=== PATIENT | female | born 1960 | race Caucasian/White ===

== ENCOUNTER 2018-01-13 07:11 | Emergency (ER) | payer BC ==
[2018-01-13 07:27] VITALS: BP 104/57
[2018-01-13] MEDS ORDERED: Fluorescein Sodium TOPICAL* 1 MG TEST STRIP OPHTHALMIC ONE (07:38)
--- NOTE | 2018-01-13 07:38 | UC ---
Eye Complaint HPI - HPI Summary HPI Summary: Pt presents to with irritation in right eye since yesterday. Pt states felt like a fb Pt irrigated but not feels irriated "everywhere" Patient denies photophobia. Patient with clear drainage. Patient denies headache. No nausea vomiting. Patient does not know what the foreign body was. Patient does not Tylenol last tetanus shot was. Patient denies vision changes. Patient was glasses but not contact lenses. Patient without any ear pain jaw pain or sinus congestion. Patient's medications reviewed this visit. Not immunocompromised. no analgesia taken - History of Current Complaint Chief Complaint: UCEye Stated Complaint: R EYE COMPLAINT Time Seen by Provider: 01/13/18 07:32 ?: No Onset/Duration: Sudden Onset Timing: Constant Severity Initially: Moderate Severity Currently: Moderate Pain Intensity: 7 - Allergies/Home Medications Allergies/Adverse Reactions: Allergies Allergy/AdvReac Type Severity Reaction Status Date / Time No Known Allergies Allergy Verified 01/13/18 07:27 Home Medications: Home Medications Fluticasone/Vilanterol MDI(NF) [Breo Ellipta MDI 100/25(NF)] 1 puff INH DAILY [History Confirmed 01/13/18] Tetrahyd/Zn/Peg 400/Hyprom/Gly [Visine Totality Multi-Sym] 1 chastity OP ONCE PRN [History Confirmed 01/13/18] PMH/Surg Hx/FS Hx/Imm Hx Previously Healthy: Yes - Surgical History Surgical History: Yes Surgery Procedure, Year, and Place: Tonsillectomy. Appendectomy. [place] [facility]. Foot - Family History Known Family History: Positive: Non-Contributory - Social History Lives: With Family Alcohol Use: Rare Substance Use Type: None Smoking Status (MU): Former Smoker When Did the Patient Quit Smoking/Using Tobacco: 2009 Review of Systems All Other Systems Reviewed And Are Negative: Yes Eyes: Positive: Drainage, Eye Redness. Negative: Blurred Vision, Diplopia, Photophobia Physical Exam - Summary Physical Exam Summary: Vital Signs Reviewed: Yes A+Ox3, no distress Eyes: right conjunctive diffusely inflammed + clear drainage no photophobic crisp fundoscopic margins b/l, fluorscene: pt with punctate uptake at 6 o'clock at margin pupil/iris. No foreign body retained appreciated. lids everted - no fb ENT: Hearing grossly normal , TM x2 clear turbinates wnl mmmoist neck: supple Respiratory: Positive: No respiratory distress, No accessory muscle use Cardiovascular: skin color reflect adequate perfusion Musculoskeletal Exam: PATHAK x 4 without difficulty Neurological: Positive: Alert, ambulatory without difficulty Psychological: Positive: Normal Response To Family Skin: Positive: no rash, no ecchymosis Triage Information Reviewed: Yes Vital Signs: Initial Vital Signs Temp 97.2 F 01/13/18 07:15 Pulse 82 01/13/18 07:15 Resp 18 01/13/18 07:15 BP 104/57 01/13/18 07:15 Pulse Ox 97 01/13/18 07:15 Eye Complaint Course/Dx - Course Course Of Treatment: Patient presents with irritation to her right eye. Patient with a foreign body sensation. Patient states she irrigated it yesterday and continues to have sensation. On exam eyes injected. Visual acuity reviewed. Patient does have fluorescein uptake around 6:00. No foreign body appreciated. No foreign body under the lids. Patient tolerated well. Patient will be given Polytrim. Patient encouraged to follow-up with her hook and eye machine operator or Dr. bautista office on Tuesday. Patient encouraged to call or return with any questions or concerns. Motrin/Tylenol for pain patient declined a tetanus today states she will follow up with primary. Patient comfortable in agreement with plan. - Differential Dx/Diagnosis Provider Diagnosis: Right corneal abrasion Discharge - Sign-Out/Discharge Documenting (check all that apply): Patient Departure All imaging exams completed and their final reports reviewed: No Studies - Discharge Plan Condition: Stable Disposition: HOME Prescriptions: Polymyx/Trimethoprim OPTH* [Polytrim OPHTH*] 2 drop RIGHT EYE Q6HR #1 btl Patient Education Materials: Corneal Abrasion (ED) Referrals: Little Sparks MD [Primary Care Provider] - Ac Flores MD [Medical Doctor] - Additional Instructions: - apply eye drops to affected every 4 times a day for the next 5 days -okay to alternate ibuprofen (Advil, Motrin) 600mg and tylenol every 3 hours for pain. Take with food - wearing sunglasses will help with discomfort if you are sensitive to the light -contact an hook and eye machine operator today (your hook and eye machine operator or Dr. Flores) to schedule a follow-up early next week. Contact the hook and eye machine operator or return if you have any questions or concerns - Billing Disposition and Condition Condition: STABLE Disposition: Home
== END 2018-01-13 08:02 | disposition home or self-care (01) ==
LOC: UCEAST 07:11
DX: S05.01XA Injury of conjunctiva and corneal abrasion without foreign body, right eye, initial encounter (principal); X58.XXXA Exposure to other specified factors, initial encounter; Y92.9 Unspecified place or not applicable; Z87.891 Personal history of nicotine dependence
CPT/HCPCS: 99212; A9270-GY; G0463

== ENCOUNTER 2019-01-15 11:13 | Emergency (ER) | payer BC ==
[2019-01-15 11:29] VITALS: BP 100/59
--- NOTE | 2019-01-15 11:50 | UC ---
Laceration HPI - HPI Summary HPI Summary: 58 y/o female presents to the urgent care c/o cutting her left middle and ring finger w/ a utility knife today. Bleeding stopped w/ pressure. Pain is 2/10 at touch and she is able to move her fingers w/o any difficulty. left ring finger laceration is very discrete. Pt is unaware of her last tetanus shot. Pt denies fever, numbness or tingling sensation over the left hand, SOB, chest pain, abdominal pain, N/V/d. - History Of Current Complaint Chief Complaint: UCLaceration Stated Complaint: FINGER LAC Time Seen by Provider: 01/15/19 11:30 Hx Obtained From: Patient Laceration Location: Finger - left middle finger laceration Mechanism Of Injury: Sharp Trauma - w/ a utility knife Onset/Duration: Sudden Onset, Lasting Hours - 2 hrs ago Severity: Mild Pain Intensity: 2 - at touch Pain Scale Used: 0-10 Numeric Aggravating Factors: Other: - touch Related History: Dominant Hand Right - Allergies/Home Medications Allergies/Adverse Reactions: Allergies Allergy/AdvReac Type Severity Reaction Status Date / Time No Known Allergies Allergy Verified 01/15/19 11:29 PMH/Surg Hx/FS Hx/Imm Hx Previously Healthy: Yes Endocrine History: Hypothyroidism Respiratory History: COPD GI/ History: Gastroesophageal Reflux - Surgical History Surgical History: Yes Surgery Procedure, Year, and Place: Tonsillectomy. Appendectomy. [place] [facility]. Foot - Family History Known Family History: Positive: Respiratory Disease - COPD Family History: colon cancer lung cancer - Social History Occupation: Employed Full-time Lives: With Family Alcohol Use: Weekly Substance Use Type: None Smoking Status (MU): Former Smoker When Did the Patient Quit Smoking/Using Tobacco: 2009 - Immunization History Hx Tetanus, Diphtheria Vaccination: No - Pt priming mixture carrier't recall when was the last Tetanus vaccine Review of Systems All Other Systems Reviewed And Are Negative: Yes Constitutional: Positive: Negative Skin: Positive: Other - laceration of left middle and ring finger w/ an utitly knife Eyes: Positive: Negative ENT: Positive: Negative Respiratory: Positive: Negative Cardiovascular: Positive: Negative Gastrointestinal: Positive: Negative Genitourinary: Positive: Negative Motor: Positive: Negative Neurovascular: Positive: Negative Musculoskeletal: Positive: Other: - left middle finger Neurological: Positive: Negative Psychological: Positive: Negative Is Patient Immunocompromised?: No Physical Exam - Summary Physical Exam Summary: Vital Signs Reviewed: Yes General: well developed, well nourished female sitting in the examining table w/ o any apparent distress Eye Exam: Normal Eyes: Positive: Conjunctiva Clear - PERRLA, EOMI, fundi grossly normal ENT: Positive: Normal ENT inspection, Hearing grossly normal, Pharynx normal, TMs normal Neck: Positive: Supple, Nontender, No Lymphadenopathy Respiratory: Positive: Chest non-tender, Lungs clear, Normal breath sounds, No respiratory distress Cardiovascular: Positive: RRR, No Murmur, Pulses Normal, Brisk Capillary Refill Abdomen Description: Positive: Nontender, No Organomegaly, Soft. Negative: CVA Tenderness (R), CVA Tenderness (L) Bowel Sounds: Positive: Present Musculoskeletal: Positive: Strength Intact, ROM Intact, No Edema Neurological: Positive: Alert, Muscle Tone Normal Psychological Exam: Normal Skin: Positive:Palmar side of the dital left middle finger with a linear superficial laceration about 1.0cm in size, non bleeding, no foreign body observed. mild tenderness to palpation, NO ecchymosis around left middle finger. Left ring finger w/ a discrete linear abrasion which is closed now. FROM of Left hand, sensation intact, capillary refill brisk, and pulses WNL. Triage Information Reviewed: Yes Vital Signs: Initial Vital Signs Temp 98.2 F 01/15/19 11:26 Pulse 86 01/15/19 11:26 Resp 18 01/15/19 11:26 BP 100/59 01/15/19 11:26 Pulse Ox 93 01/15/19 11:26 Laceration Repair - Laceration Repair 1 Description: Linear - superficial linear laceration over the palmar distal left middle finger Laceration Size After Repair: Length (cm) - 1.0cm in size Modified For Repair: No Cleansing Completed Via Routine Prep: Yes Irrigation With Pressure Irrigation Device: Yes Closure Material: Skin Adhesive, SteriStrips - 3 Suture Of: Skin Laceration Course/Dx - Course/Dx Course Of Treatment: Pt w/ Palmar side of the dital left middle finger with a linear superficial laceration about 1.0cm in size, non bleeding, no foreign body observed. mild tenderness to palpation on examination. LACERATION PROCEDURE NOTE: . Copious irrigation was done with saline and the wound explored. There was no FB or deep structure injury noted. wound cleaned w/ Iodine swabs. Laceration closed w / skin adhesive and 3 steri-strips. Wound dressed w/ sterile gauze.The Pt tolerated the procedure well without adverse effects. Neurovascular intact and FROM of left middle finger. Tdap ordered and applied by nurse. Pt advised if any signs of infection develop to immediately return to the urgent care of PCP for further management and treatment. Pt understood and agreed and left the clinic ambulating A&Ox3. - Differential Dx - Laceration/Wound Differental Diagnoses: Abrasion, Cellulitis, Dehiscence, Laceration, Puncture Wound, Tendon Laceration - Diagnosis Provider Diagnosis: Laceration of middle finger Discharge ED - Sign-Out/Discharge Documenting (check all that apply): Patient Departure - D/C home All imaging exams completed and their final reports reviewed: No Studies - Discharge Plan Condition: Stable Disposition: HOME Patient Education Materials: Laceration (ED), Skin Adhesive Care (ED) Referrals: Little Sparks MD [Primary Care Provider] - 1 Week Additional Instructions: 1-Keep wound clean and dry. When steri-strips come off by itself, Please apply Bacitracin oint as directed to prevent infection 2- You were given a booster of Tetanus vaccine today 3-Take Ibuprofen or Tylenol PO q6-8hrs prn for pain or swelling. 4- If you develop fever or redness around your finger please return to the Urgent care or f/u w/ your PCP for further evaluation and treatment - Billing Disposition and Condition Condition: STABLE Disposition: Home
[2019-01-15] MEDS ORDERED: Tetan/Diph/Pertus SYR(Tdap)* 0.5 ML SYR(BOOSTRIX) use SYR contains LATEX IM ONE (11:59)
== END 2019-01-15 12:31 | disposition home or self-care (01) ==
LOC: UCEAST 11:13
DX: S61.213A Laceration without foreign body of left middle finger without damage to nail, initial encounter (principal); S61.215A Laceration without foreign body of left ring finger without damage to nail, initial encounter; W26.0XXA Contact with knife, initial encounter; Y92.9 Unspecified place or not applicable; Z23 Encounter for immunization; E03.9 Hypothyroidism, unspecified; J44.9 Chronic obstructive pulmonary disease, unspecified; K21.9 Gastro-esophageal reflux disease without esophagitis; Z87.891 Personal history of nicotine dependence
CPT/HCPCS: 12001; 90471; 90715; 99212; G0463